=== PATIENT | male | born 2000 | race African-American/Black ===

== ENCOUNTER 2020-09-17 11:24 | Emergency (ER) | payer SELFPAY ==
[~2020-09-17] VITALS: Ht 177.8 cm; Wt 93.0 kg
[2020-09-17] MEDS ORDERED: PREDNISONE 20 MG TAB PO ONE (12:00)
[2020-09-17] MEDS ORDERED: LIDOCAINE HCL 2% 2 ML AMP INJ ONE (12:00)
[2020-09-17] MEDS ORDERED: CLINDAMYCIN HCL 150 MG CAP PO ONE (12:00)
[2020-09-17] MEDS ORDERED: LIDOCAINE HCL 2% LOCAL 20 ML VIAL ONE (12:05)
[2020-09-17] MEDS ORDERED: PREDNISONE 20 MG TAB ONE (12:16)
[2020-09-17] MEDS ORDERED: PREDNISONE20 MG PO (12:23)
[2020-09-17] MEDS ORDERED: CLINDAMYCIN HC300 MG PO (12:23)
== END 2020-09-17 12:35 | disposition home or self-care (01) ==
LOC: FSED 11:50
DX: K04.7 Periapical abscess without sinus (principal)
CPT/HCPCS: 99282; J2001; J7512